=== PATIENT | male | born 1950 | race Two or more races ===

== ENCOUNTER 2021-11-04 22:13 | Inpatient (IN) | payer MEDICARE ==
[~2021-11-04] VITALS: Ht 170.2 cm; Wt 67.9 kg
[2021-11-05 00:30] LABS: BASOPHILS % (AUTO) 0.4 % (0.0-2.0); EOSINOPHILS % (AUTO) 0 % (1.0-6.0); HEMOGLOBIN 9.3 g/dL (13.5-17.5); LYMPHOCYTES # (AUTO) 0.5 K/uL (1.0-4.8)
[2021-11-05 00:33] LABS: HEMATOCRIT 30.2 % (41-53); LYMPHOCYTES % (AUTO) 1.2 % (22.0-44.0); MEAN CORPUSCULAR HEMOGLOBIN 23.6 pg (26.0-34.0); MEAN CORPUSCULAR HGB CONC 30.9 G/dL (31.0-37.0); MEAN CORPUSCULAR VOLUME 76 fL (80-100); MONOCYTES # (AUTO) 1.2 K/uL (0.1-1.0); MONOCYTES % (AUTO) 3.3 % (2.0-9.0); PLATELET COUNT (AUTO) 418 K/uL (150-450); RED BLOOD CELL COUNT(AUTO) 3.95 MIL/uL (4.50-5.90); RED CELL DISTRIBUTION WIDTH 15.7 % (11.5-14.5)
[2021-11-05 00:36] LABS: NEUTROPHILS % (AUTO) 95.1 % (40.0-70.0)
[2021-11-05 00:39] LABS: ANION GAP 15 mmol/L (8-16); CALCIUM, TOTAL 8.5 mg/dL (8.8-10.5); CARBON DIOXIDE 19 mmol/L (22-29); CHLORIDE 107 mmol/L (98-107); CREATININE 2.84 mg/dL (0.60-1.30); GLOMERULAR FILTR. RATE CALC 22 mL/min (>60); GLUCOSE,RANDOM 239 mg/dL (70-110); SODIUM SERUM 141 mmol/L (136-145); UREA NITROGEN, BLOOD 20 mg/dL (7-18)
[2021-11-05] MEDS ORDERED: CefTRIAXone SODIUM 2 GM in DEXTROSE 5%-WATER 50 ML IV ONE (00:45)
[2021-11-05] MEDS ORDERED: VANCOMYCIN HCL 1 GM/D5% WATER 200 ML IV ONE (00:45)
[2021-11-05] MEDS ORDERED: SODIUM CHLORIDE 0.9% 2,050 ML IV ONE (00:45)
[2021-11-05 00:47] LABS: TROPONIN I 0.22 ng/mL (0.00-0.05)
[2021-11-05 00:54] LABS: ALBUMIN 2.2 g/dL (3.4-5.0); ALKALINE PHOSPHATASE 81 U/L (46-116); ASPARTATE AMINOTRANSFERASE 63 U/L (15-37); BILIRUBIN,TOTAL 0.6 mg/dL (0.1-1.0); THYROID STIMULATING HORMONE 1.17 uIU/mL (0.36-3.74); TOTAL PROTEIN, SERUM 6.1 g/dL (6.4-8.2)
[2021-11-05 00:58] LABS: LACTIC ACID 9.1 mmol/L (0.4-2.0)
[2021-11-05 01:16] LABS: ALANINE AMINOTRANSFERASE 52 U/L (12-78)
[2021-11-05 03:16] LABS: APPEARANCE,URINE TURBID (CLEAR); GLUCOSE, URINE (UA) NEGATIVE (NEGATIVE); KETONES,URINE 40 mg/dL (NEGATIVE); LEUKOCYTE ESTERASE ,URINE MODERATE (NEGATIVE); NITRATE,URINE POSITIVE (NEGATIVE); OCCULT BLOOD,URINE LARGE (NEGATIVE); PH,URINE 6.5 (5.0-8.0); PROTEIN,URINE SEE CONFIRM (NEGATIVE)
[2021-11-05 03:18] LABS: BILIRUBIN,URINE PRELIM. POSITIVE (NEGATIVE)
[2021-11-05 03:20] LABS: AMPHET/METH SCREEN,URINE NEGATIVE (NEGATIVE); BARBITURATE SCREEN, URINE NEGATIVE (NEGATIVE); BENZODIAZEPINES SCREEN,URINE NEGATIVE (NEGATIVE); CANNABINOID SCREEN,URINE NEGATIVE (NEGATIVE); COCAINE SCREEN,URINE NEGATIVE (NEGATIVE); METHADONE SCREEN, URINE NEGATIVE (NEGATIVE); OPIATE SCREEN,URINE NEGATIVE (NEGATIVE)
[2021-11-05 03:23] LABS: PHENCYCLIDINE SCREEN,URINE NEGATIVE (NEGATIVE)
[2021-11-05 03:24] LABS: BACTERIA,URINE Moderate /HPF (None Seen); RBC,URINE Full Field /HPF (0-2); SQUAMOUS EPITHELIAL CELL,UR Rare /LPF (None Seen); SULFOSALICYLIC ACID,URINE 4+ (Negative); WBC,URINE 26-50 /HPF (0-5)
[2021-11-05] MEDS ORDERED: ONDANSETRON HCL 4 MG/2 ML VIAL IVP PRN ×2 (07:30→14:30)
[2021-11-05] MEDS ORDERED: ACETAMINOPHEN 325 MG TABLET PO PRN (07:30)
[2021-11-05] MEDS ORDERED: 0.9% SODIUM CHLORIDE 10 ML SYRINGE IVP PRN (07:30)
[2021-11-05 09:51] LABS: COVID AG,FIA SOURCE NASOPHARYNGEAL
[2021-11-05] MEDS ORDERED: MORPHINE SULFATE 2 MG/ML SYRINGE IVP PRN (14:30)
[2021-11-05] MEDS ORDERED: BISACODYL 10 MG RECTAL RECTAL SUPPOSITORY PR PRN (14:30)
[2021-11-05] MEDS ORDERED: MAGNESIUM HYDROXIDE SUSPENSION 30 ML UDCUP PO PRN (14:30)
[2021-11-05] MEDS ORDERED: HYDROCODONE/ACETAMINOPHEN 5-325 MG TABLET PO PRN (14:30)
[2021-11-05 15:34] LABS: ABG BASE EXCESS -5.1 mmol/L (-2.0-3.0); ABG CARBOXYHEMOGLOBIN 0.5 % (0.0-1.5); ABG METHEMOGLOBIN 0.2 % (0.0-1.5); ABG OXYGEN CONTENT 11.1 mL/dL (15.0-23.0); ABG OXYGEN SATURATION 92.7 % (95.0-98.0); ABG OXYHEMOGLOBIN 92.1 % (94.0-100.0); ABG PCO2 23 mmHg (35-45); ABG PH 7.504 (7.35-7.450); ABG TOTAL HEMOGLOBIN 8.5 G/dL (12.0-18.0); PO2, ARTERIAL BG 67.6 mmHg (75.0-83.0); SITE, BLOOD GAS LFT RADIAL; SOURCE, BLOOD GAS ARTERIAL; TEMPERATURE, FAHRENHEIT, BG 99.3 FAHREN (96.0-98.6)
[2021-11-05 15:35] LABS: ABG A-A DIFF O2 53.9 mmHg (10-20.0); O2 DEVICE,BLOOD GAS ROOM AIR (ROOM AIR)
[2021-11-05 15:56] LABS: INR 1.3 (0.9-1.1); PROTHROMBIN TIME 13.5 SEC (9.4-11.6)
[2021-11-05] MEDS: MethylPREDNISolone SOD SUCC 125 MG/2 ML VIAL IVP SCH (18:03)
[2021-11-05 19:55] LABS: CALCIUM, TOTAL 8.3 mg/dL (8.8-10.5); CREATININE 2.19 mg/dL (0.60-1.30); POTASSIUM 3.8 mmol/L (3.5-5.1)
[2021-11-05] MEDS: DOCUSATE SODIUM 100 MG CAPSULE PO SCH (20:32)
[2021-11-05] MEDS: CefTRIAXone 1 GM/DEXTROSE 50 ML IV SCH (21:26)
[2021-11-05 22:09] VITALS: BP 148/78
[2021-11-05 23:41] VITALS: BP 117/70
[2021-11-06] MEDS: MethylPREDNISolone SOD SUCC 125 MG/2 ML VIAL IVP SCH ×5 (00:10→23:42)
[2021-11-06] MEDS ORDERED: INFLUENZA VIRUS VACCINE QVS 2021-22 (6MO+)/PF 60 MCG/0.5 ML SYRINGE IM. ONE (02:15)
[2021-11-06] MEDS ORDERED: PNEUMOCOCCAL VACCINE POLYVALENT 0.5 ML VIAL [PPSV23] IM. ONE (02:15)
[2021-11-06 03:49] VITALS: BP 110/67
[2021-11-06 07:55] VITALS: BP 155/98
[2021-11-06 08:15] LABS: BASOPHILS % (AUTO) 0.1 % (0.0-2.0); EOSINOPHILS % (AUTO) 0 % (1.0-6.0); HEMATOCRIT 22.6 % (41-53); HEMOGLOBIN 7.4 g/dL (13.5-17.5); LYMPHOCYTES # (AUTO) 0.6 K/uL (1.0-4.8); LYMPHOCYTES % (AUTO) 2.3 % (22.0-44.0); MEAN CORPUSCULAR HEMOGLOBIN 24.2 pg (26.0-34.0); MEAN CORPUSCULAR HGB CONC 32.9 G/dL (31.0-37.0); MEAN CORPUSCULAR VOLUME 74 fL (80-100); MONOCYTES # (AUTO) 0.9 K/uL (0.1-1.0); MONOCYTES % (AUTO) 3.3 % (2.0-9.0); NEUTROPHILS # (AUTO) 25.2 K/uL (1.8-7.7); PLATELET COUNT (AUTO) 350 K/uL (150-450); RED BLOOD CELL COUNT(AUTO) 3.08 MIL/uL (4.50-5.90); RED CELL DISTRIBUTION WIDTH 15.3 % (11.5-14.5)
[2021-11-06 08:22] LABS: NEUTROPHILS % (AUTO) 94.3 % (40.0-70.0)
[2021-11-06 08:32] LABS: CREATININE 1.77 mg/dL (0.60-1.30); POTASSIUM 4.2 mmol/L (3.5-5.1)
[2021-11-06 08:33] LABS: BILIRUBIN,TOTAL 0.4 mg/dL (0.1-1.0); CALCIUM, TOTAL 8.7 mg/dL (8.8-10.5)
[2021-11-06] MEDS: PANTOPRAZOLE SODIUM 40 MG/VIAL IVP SCH (09:06)
[2021-11-06] MEDS: DOCUSATE SODIUM 100 MG CAPSULE PO SCH ×2 (09:06→21:00)
[2021-11-06] MEDS: SODIUM CHLORIDE 0.9% 1,000 ML IV SCH ×2 (09:07→23:43)
[2021-11-06 11:07] VITALS: BP 149/89
[2021-11-06 15:54] VITALS: BP 148/84
[2021-11-06 20:24] VITALS: BP 119/74
[2021-11-06] MEDS: CefTRIAXone 1 GM/DEXTROSE 50 ML IV SCH (21:27)
[2021-11-07] VITALS (12 sets, daily range): BP systolic 111–132; BP diastolic 57–99
[2021-11-07] MEDS: MethylPREDNISolone SOD SUCC 125 MG/2 ML VIAL IVP SCH ×2 (05:36→13:18)
[2021-11-07 06:56] LABS: MEAN CORPUSCULAR HEMOGLOBIN 24.1 pg (26.0-34.0); MEAN CORPUSCULAR HGB CONC 32.8 G/dL (31.0-37.0); MEAN CORPUSCULAR VOLUME 74 fL (80-100); PLATELET COUNT (AUTO) 323 K/uL (150-450); RED BLOOD CELL COUNT(AUTO) 2.71 MIL/uL (4.50-5.90); RED CELL DISTRIBUTION WIDTH 15.2 % (11.5-14.5)
[2021-11-07 07:12] LABS: MAGNESIUM 2.5 mg/dL (1.80-2.40); PHOSPHORUS 3.3 mg/dL (2.5-4.9)
[2021-11-07 07:16] LABS: % IRON SATURATION 5.3 % (30-44)
[2021-11-07 07:26] LABS: CALCIUM, TOTAL 8.6 mg/dL (8.8-10.5); CREATININE 1.37 mg/dL (0.60-1.30); POTASSIUM 4.1 mmol/L (3.5-5.1)
[2021-11-07] MEDS: PANTOPRAZOLE SODIUM 40 MG/VIAL IVP SCH (07:54)
[2021-11-07] MEDS: DOCUSATE SODIUM 100 MG CAPSULE PO SCH ×2 (07:54→21:10)
[2021-11-07 07:55] LABS: HEMOGLOBIN 6.5 g/dL (13.5-17.5)
[2021-11-07 07:56] LABS: HEMATOCRIT 19.9 % (41-53)
[2021-11-07 09:19] LABS: BAND NEUTROPHILS % (MANUAL) 2 % (0-5); LYMPHOCYTES % (MANUAL) 3 % (22-44); MONOCYTES % (MANUAL) 4 % (2-9); SEGMENTED NEUTROPHILS % 91 % (40-70)
[2021-11-07] MEDS: SODIUM CHLORIDE 0.9% 1,000 ML IV SCH (13:24)
[2021-11-07] MEDS: ALBUTEROL SULFATE 2.5 MG/0.5 ML NEB SOLUTION NEB PRN ×2 (13:59→19:40)
[2021-11-07] MEDS: IPRATROPIUM BROMIDE 0.5 MG/2.5 ML NEB SOLUTION NEB PRN ×2 (13:59→19:40)
[2021-11-07] MEDS ORDERED: MethylPREDNISolone SOD SUCC 40 MG/ML VIAL IVP SCH (21:00)
[2021-11-07] MEDS: CefTRIAXone 1 GM/DEXTROSE 50 ML IV SCH (21:10)
[2021-11-07] MEDS ORDERED: SODIUM CHLORIDE 0.9% 250 ML IV ONE (22:15)
[2021-11-08] VITALS (8 sets, daily range): BP systolic 117–158; BP diastolic 67–97
[2021-11-08 08:14] LABS: BASOPHILS % (AUTO) 0.1 % (0.0-2.0); EOSINOPHILS % (AUTO) 0 % (1.0-6.0); HEMATOCRIT 26.2 % (41-53); HEMOGLOBIN 8.5 g/dL (13.5-17.5); LYMPHOCYTES # (AUTO) 0.6 K/uL (1.0-4.8); LYMPHOCYTES % (AUTO) 3.2 % (22.0-44.0); MEAN CORPUSCULAR HEMOGLOBIN 24.6 pg (26.0-34.0); MEAN CORPUSCULAR HGB CONC 32.5 G/dL (31.0-37.0); MEAN CORPUSCULAR VOLUME 76 fL (80-100); MONOCYTES # (AUTO) 0.7 K/uL (0.1-1.0); MONOCYTES % (AUTO) 4.2 % (2.0-9.0); NEUTROPHILS # (AUTO) 16.4 K/uL (1.8-7.7); PLATELET COUNT (AUTO) 343 K/uL (150-450); RED BLOOD CELL COUNT(AUTO) 3.46 MIL/uL (4.50-5.90); RED CELL DISTRIBUTION WIDTH 16.6 % (11.5-14.5)
[2021-11-08 08:20] LABS: NEUTROPHILS % (AUTO) 92.5 % (40.0-70.0)
[2021-11-08] MEDS: SODIUM CHLORIDE 0.9% 1,000 ML IV SCH (08:28)
[2021-11-08] MEDS: DOCUSATE SODIUM 100 MG CAPSULE PO SCH ×2 (08:59→21:39)
[2021-11-08] MEDS: PredniSONE 20 MG TABLET PO SCH (08:59)
[2021-11-08] MEDS: PANTOPRAZOLE SODIUM 40 MG/VIAL IVP SCH (08:59)
[2021-11-08] MEDS: CefTRIAXone 1 GM/DEXTROSE 50 ML IV SCH (21:39)
[2021-11-09 00:09] VITALS: BP 132/84
[2021-11-09] MEDS: SODIUM CHLORIDE 0.9% 1,000 ML IV SCH ×2 (01:55→16:47)
[2021-11-09 04:11] VITALS: BP 156/92
[2021-11-09 07:33] VITALS: BP 134/88
[2021-11-09] MEDS: DOCUSATE SODIUM 100 MG CAPSULE PO SCH ×2 (08:00→21:00)
[2021-11-09 08:15] LABS: BASOPHILS % (AUTO) 0.1 % (0.0-2.0); EOSINOPHILS % (AUTO) 0 % (1.0-6.0); HEMATOCRIT 25.2 % (41-53); HEMOGLOBIN 8.1 g/dL (13.5-17.5); LYMPHOCYTES # (AUTO) 1.1 K/uL (1.0-4.8); LYMPHOCYTES % (AUTO) 7.6 % (22.0-44.0); MEAN CORPUSCULAR HEMOGLOBIN 24.4 pg (26.0-34.0); MEAN CORPUSCULAR HGB CONC 32.2 G/dL (31.0-37.0); MEAN CORPUSCULAR VOLUME 76 fL (80-100); MONOCYTES # (AUTO) 1.2 K/uL (0.1-1.0); NEUTROPHILS # (AUTO) 12.6 K/uL (1.8-7.7); NEUTROPHILS % (AUTO) 84.3 % (40.0-70.0); PLATELET COUNT (AUTO) 339 K/uL (150-450); RED BLOOD CELL COUNT(AUTO) 3.33 MIL/uL (4.50-5.90)
[2021-11-09] MEDS: PANTOPRAZOLE SODIUM 40 MG/VIAL IVP SCH (08:21)
[2021-11-09] MEDS: PredniSONE 20 MG TABLET PO SCH (08:21)
[2021-11-09 11:29] LABS: CALCIUM, TOTAL 8.4 mg/dL (8.8-10.5); CREATININE 1.21 mg/dL (0.60-1.30); POTASSIUM 4.1 mmol/L (3.5-5.1)
[2021-11-09 11:38] VITALS: BP 135/85
[2021-11-09 15:19] VITALS: BP 144/86
[2021-11-09 19:44] VITALS: BP 156/89
[2021-11-09] MEDS: CefTRIAXone 1 GM/DEXTROSE 50 ML IV SCH (21:14)
[2021-11-10 00:08] VITALS: BP 143/84
[2021-11-10 04:43] VITALS: BP 155/85
[2021-11-10] MEDS: SODIUM CHLORIDE 0.9% 1,000 ML IV SCH (06:19)
[2021-11-10] MEDS: DOCUSATE SODIUM 100 MG CAPSULE PO SCH ×2 (09:00→21:11)
[2021-11-10] MEDS: PANTOPRAZOLE SODIUM 40 MG/VIAL IVP SCH (09:00)
[2021-11-10 09:12] LABS: BASOPHILS % (AUTO) 0.1 % (0.0-2.0); EOSINOPHILS % (AUTO) 0.6 % (1.0-6.0); HEMATOCRIT 32.4 % (41-53); HEMOGLOBIN 10.5 g/dL (13.5-17.5); LYMPHOCYTES # (AUTO) 1.6 K/uL (1.0-4.8); LYMPHOCYTES % (AUTO) 12.2 % (22.0-44.0); MEAN CORPUSCULAR HEMOGLOBIN 24.5 pg (26.0-34.0); MEAN CORPUSCULAR HGB CONC 32.4 G/dL (31.0-37.0); MEAN CORPUSCULAR VOLUME 76 fL (80-100); MONOCYTES # (AUTO) 1.1 K/uL (0.1-1.0); MONOCYTES % (AUTO) 8.3 % (2.0-9.0); NEUTROPHILS # (AUTO) 10.3 K/uL (1.8-7.7); NEUTROPHILS % (AUTO) 78.8 % (40.0-70.0); PLATELET COUNT (AUTO) 433 K/uL (150-450); RED BLOOD CELL COUNT(AUTO) 4.28 MIL/uL (4.50-5.90); RED CELL DISTRIBUTION WIDTH 16.5 % (11.5-14.5)
[2021-11-10 09:21] LABS: CALCIUM, TOTAL 8.7 mg/dL (8.8-10.5); CREATININE 1.29 mg/dL (0.60-1.30); POTASSIUM 3.6 mmol/L (3.5-5.1)
[2021-11-10 09:52] VITALS: BP 148/87
[2021-11-10 10:18] VITALS: BP 134/77
[2021-11-10 16:20] VITALS: BP 127/67
[2021-11-10 20:51] VITALS: BP 135/83
[2021-11-10] MEDS: CefTRIAXone 1 GM/DEXTROSE 50 ML IV SCH (21:18)
[2021-11-11 00:19] VITALS: BP 151/84
[2021-11-11] MEDS: SODIUM CHLORIDE 0.9% 1,000 ML IV SCH ×2 (00:33→18:05)
[2021-11-11 04:15] VITALS: BP 158/98
[2021-11-11 08:07] VITALS: BP 146/89
[2021-11-11] MEDS: AmLODIPine BESYLATE 5 MG TABLET PO SCH (09:12)
[2021-11-11] MEDS: DOCUSATE SODIUM 100 MG CAPSULE PO SCH ×3 (09:12→21:43)
[2021-11-11] MEDS: PANTOPRAZOLE SODIUM 40 MG/VIAL IVP SCH (09:12)
[2021-11-11 10:46] LABS: BASOPHILS % (AUTO) 0.1 % (0.0-2.0); HEMATOCRIT 32.3 % (41-53); HEMOGLOBIN 10.2 g/dL (13.5-17.5); LYMPHOCYTES # (AUTO) 1.6 K/uL (1.0-4.8); LYMPHOCYTES % (AUTO) 13.1 % (22.0-44.0); MEAN CORPUSCULAR HEMOGLOBIN 24.3 pg (26.0-34.0); MEAN CORPUSCULAR HGB CONC 31.6 G/dL (31.0-37.0); MEAN CORPUSCULAR VOLUME 77 fL (80-100); MONOCYTES # (AUTO) 0.9 K/uL (0.1-1.0); MONOCYTES % (AUTO) 7.5 % (2.0-9.0); NEUTROPHILS # (AUTO) 9.3 K/uL (1.8-7.7); NEUTROPHILS % (AUTO) 78.3 % (40.0-70.0); PLATELET COUNT (AUTO) 423 K/uL (150-450); RED CELL DISTRIBUTION WIDTH 16.9 % (11.5-14.5)
[2021-11-11 10:58] LABS: ALBUMIN 2.1 g/dL (3.4-5.0); BILIRUBIN,TOTAL 0.3 mg/dL (0.1-1.0); CALCIUM, TOTAL 8.4 mg/dL (8.8-10.5); CREATININE 1.3 mg/dL (0.60-1.30); POTASSIUM 3.6 mmol/L (3.5-5.1); TOTAL PROTEIN, SERUM 5.6 g/dL (6.4-8.2)
[2021-11-11 11:22] VITALS: BP 133/78
[2021-11-11 16:11] VITALS: BP 125/75
[2021-11-11 20:16] VITALS: BP 125/77
[2021-11-11] MEDS: CefTRIAXone 1 GM/DEXTROSE 50 ML IV SCH (22:02)
[2021-11-12 04:48] VITALS: BP 147/84
[2021-11-12 07:00] LABS: ANION GAP 5 mmol/L (8-16); CALCIUM, TOTAL 7.7 mg/dL (8.8-10.5); CARBON DIOXIDE 28 mmol/L (22-29); CHLORIDE 110 mmol/L (98-107); CREATININE 1.14 mg/dL (0.60-1.30); GLUCOSE,RANDOM 91 mg/dL (70-110); POTASSIUM 4.1 mmol/L (3.5-5.1); SODIUM SERUM 143 mmol/L (136-145); UREA NITROGEN, BLOOD 16 mg/dL (7-18)
[2021-11-12 07:02] LABS: GLOMERULAR FILTR. RATE CALC > 60 mL/min (>60)
[2021-11-12 07:41] VITALS: BP 126/72
[2021-11-12] MEDS: DOCUSATE SODIUM 100 MG CAPSULE PO SCH ×2 (08:05→20:19)
[2021-11-12] MEDS: PANTOPRAZOLE SODIUM 40 MG/VIAL IVP SCH (08:05)
[2021-11-12] MEDS: AmLODIPine BESYLATE 5 MG TABLET PO SCH (08:05)
[2021-11-12] MEDS: SODIUM CHLORIDE 0.9% 1,000 ML IV SCH (08:08)
[2021-11-12 09:50] LABS: BASOPHILS % (AUTO) 0.4 % (0.0-2.0); EOSINOPHILS % (AUTO) 1.6 % (1.0-6.0); HEMATOCRIT 32.5 % (41-53); HEMOGLOBIN 10.4 g/dL (13.5-17.5); LYMPHOCYTES # (AUTO) 1.1 K/uL (1.0-4.8); LYMPHOCYTES % (AUTO) 8.1 % (22.0-44.0); MEAN CORPUSCULAR HEMOGLOBIN 24.4 pg (26.0-34.0); MEAN CORPUSCULAR HGB CONC 31.8 G/dL (31.0-37.0); MEAN CORPUSCULAR VOLUME 77 fL (80-100); MONOCYTES # (AUTO) 0.9 K/uL (0.1-1.0); MONOCYTES % (AUTO) 6.7 % (2.0-9.0); NEUTROPHILS # (AUTO) 11.6 K/uL (1.8-7.7); NEUTROPHILS % (AUTO) 83.2 % (40.0-70.0); PLATELET COUNT (AUTO) 461 K/uL (150-450); RED BLOOD CELL COUNT(AUTO) 4.25 MIL/uL (4.50-5.90); RED CELL DISTRIBUTION WIDTH 17.1 % (11.5-14.5)
[2021-11-12 16:58] VITALS: BP 133/87
[2021-11-12 20:04] VITALS: BP 120/77
[2021-11-12] MEDS: CefTRIAXone 1 GM/DEXTROSE 50 ML IV SCH (21:27)
[2021-11-13] MEDS: SODIUM CHLORIDE 0.9% 1,000 ML IV SCH ×2 (02:02→20:08)
[2021-11-13 04:16] VITALS: BP 118/89
[2021-11-13 07:45] VITALS: BP 132/71
[2021-11-13] MEDS: PANTOPRAZOLE SODIUM 40 MG/VIAL IVP SCH (08:25)
[2021-11-13] MEDS: AmLODIPine BESYLATE 5 MG TABLET PO SCH (08:26)
[2021-11-13] MEDS: DOCUSATE SODIUM 100 MG CAPSULE PO SCH ×2 (08:26→20:08)
[2021-11-13] MEDS ORDERED: SODIUM CHLORIDE 0.9% 500 ML IV ONE (10:45)
[2021-11-13 13:11] LABS: BASOPHILS % (AUTO) 1.1 % (0.0-2.0); EOSINOPHILS % (AUTO) 0.8 % (1.0-6.0); HEMATOCRIT 32.1 % (41-53); HEMOGLOBIN 10.2 g/dL (13.5-17.5); LYMPHOCYTES % (AUTO) 8.8 % (22.0-44.0); MEAN CORPUSCULAR HEMOGLOBIN 24.5 pg (26.0-34.0); MEAN CORPUSCULAR HGB CONC 31.9 G/dL (31.0-37.0); MEAN CORPUSCULAR VOLUME 77 fL (80-100); MONOCYTES # (AUTO) 1.2 K/uL (0.1-1.0); MONOCYTES % (AUTO) 10.6 % (2.0-9.0); NEUTROPHILS # (AUTO) 8.6 K/uL (1.8-7.7); NEUTROPHILS % (AUTO) 78.7 % (40.0-70.0); PLATELET COUNT (AUTO) 453 K/uL (150-450); RED BLOOD CELL COUNT(AUTO) 4.17 MIL/uL (4.50-5.90); RED CELL DISTRIBUTION WIDTH 17.2 % (11.5-14.5)
[2021-11-13 13:17] LABS: CALCIUM, TOTAL 8.3 mg/dL (8.8-10.5); CREATININE 1.31 mg/dL (0.60-1.30); POTASSIUM 4.2 mmol/L (3.5-5.1)
[2021-11-13 13:23] LABS: ALBUMIN 2.3 g/dL (3.4-5.0); BILIRUBIN,TOTAL 0.3 mg/dL (0.1-1.0)
[2021-11-13 16:28] VITALS: BP 144/72
[2021-11-13 19:37] VITALS: BP 130/67
[2021-11-13] MEDS: CefTRIAXone 1 GM/DEXTROSE 50 ML IV SCH (21:06)
[2021-11-14 04:07] VITALS: BP 144/62
[2021-11-14 08:12] VITALS: BP 138/75
[2021-11-14] MEDS: DOCUSATE SODIUM 100 MG CAPSULE PO SCH ×3 (08:35→21:00)
[2021-11-14] MEDS: PANTOPRAZOLE SODIUM 40 MG/VIAL IVP SCH (08:35)
[2021-11-14] MEDS: AmLODIPine BESYLATE 5 MG TABLET PO SCH (08:35)
[2021-11-14 11:46] VITALS: BP 118/66
[2021-11-14 14:03] LABS: CALCIUM, TOTAL 7.3 mg/dL (8.8-10.5); CREATININE 1.2 mg/dL (0.60-1.30); POTASSIUM 3.7 mmol/L (3.5-5.1)
[2021-11-14 14:36] LABS: PHOSPHORUS 3.2 mg/dL (2.5-4.9)
[2021-11-14 15:46] VITALS: BP 122/73
[2021-11-14 17:27] LABS: COVID AG,FIA SOURCE NASAL SWAB
[2021-11-14] MEDS: SODIUM CHLORIDE 0.9% 1,000 ML IV SCH (18:25)
[2021-11-14 19:40] VITALS: BP 150/87
[2021-11-14] MEDS: CefTRIAXone 1 GM/DEXTROSE 50 ML IV SCH (21:28)
[2021-11-14] MEDS: ZOLPIDEM TARTRATE 5 MG TABLET PO PRN (21:30)
[2021-11-15] MEDS: SODIUM CHLORIDE 0.9% 1,000 ML IV SCH ×2 (00:45→15:52)
[2021-11-15 04:00] VITALS: BP 115/78
[2021-11-15 08:14] VITALS: BP 119/72
[2021-11-15] MEDS: PANTOPRAZOLE SODIUM 40 MG/VIAL IVP SCH (08:40)
[2021-11-15] MEDS: AmLODIPine BESYLATE 5 MG TABLET PO SCH (08:41)
[2021-11-15] MEDS: DOCUSATE SODIUM 100 MG CAPSULE PO SCH ×2 (08:41→21:23)
[2021-11-15 12:33] LABS: HEMATOCRIT 30.8 % (41-53); HEMOGLOBIN 10.1 g/dL (13.5-17.5)
[2021-11-15 16:02] VITALS: BP 133/76
[2021-11-15 19:52] VITALS: BP 137/75
[2021-11-15] MEDS: CefTRIAXone 1 GM/DEXTROSE 50 ML IV SCH (21:23)
[2021-11-15] MEDS: ZOLPIDEM TARTRATE 5 MG TABLET PO PRN (21:32)
[2021-11-16 04:28] VITALS: BP 128/76
[2021-11-16 08:16] VITALS: BP 132/81
[2021-11-16] MEDS: SODIUM CHLORIDE 0.9% 1,000 ML IV SCH ×2 (09:16→21:25)
[2021-11-16] MEDS: DOCUSATE SODIUM 100 MG CAPSULE PO SCH ×2 (09:17→19:49)
[2021-11-16] MEDS: PANTOPRAZOLE SODIUM 40 MG/VIAL IVP SCH (09:17)
[2021-11-16] MEDS: AmLODIPine BESYLATE 5 MG TABLET PO SCH (09:18)
[2021-11-16 19:35] VITALS: BP 140/79
[2021-11-16] MEDS: CefTRIAXone 1 GM/DEXTROSE 50 ML IV SCH (21:24)
[2021-11-17 03:11] VITALS: BP 142/82
[2021-11-17 08:00] VITALS: BP 136/82
[2021-11-17] MEDS: DOCUSATE SODIUM 100 MG CAPSULE PO SCH ×2 (09:00→21:00)
[2021-11-17] MEDS: AmLODIPine BESYLATE 5 MG TABLET PO SCH (09:19)
[2021-11-17] MEDS: PANTOPRAZOLE SODIUM 40 MG/VIAL IVP SCH (09:20)
[2021-11-17 11:09] VITALS: BP 129/77
[2021-11-17 11:36] LABS: BASOPHILS % (AUTO) 0.5 % (0.0-2.0); EOSINOPHILS % (AUTO) 0.3 % (1.0-6.0); HEMATOCRIT 33.2 % (41-53); HEMOGLOBIN 10.6 g/dL (13.5-17.5); LYMPHOCYTES # (AUTO) 0.8 K/uL (1.0-4.8); LYMPHOCYTES % (AUTO) 11.1 % (22.0-44.0); MEAN CORPUSCULAR HEMOGLOBIN 24.3 pg (26.0-34.0); MEAN CORPUSCULAR HGB CONC 31.8 G/dL (31.0-37.0); MEAN CORPUSCULAR VOLUME 77 fL (80-100); MONOCYTES # (AUTO) 0.7 K/uL (0.1-1.0); MONOCYTES % (AUTO) 10.1 % (2.0-9.0); NEUTROPHILS # (AUTO) 5.3 K/uL (1.8-7.7); PLATELET COUNT (AUTO) 455 K/uL (150-450); RED BLOOD CELL COUNT(AUTO) 4.34 MIL/uL (4.50-5.90); RED CELL DISTRIBUTION WIDTH 17.8 % (11.5-14.5)
[2021-11-17] MEDS: SODIUM CHLORIDE 0.9% 1,000 ML IV SCH (12:13)
[2021-11-17 14:55] VITALS: BP 131/81
[2021-11-17] MEDS: ACETAMINOPHEN 325 MG TABLET PO PRN (18:18)
[2021-11-17 19:28] VITALS: BP 120/81
[2021-11-17] MEDS: CefTRIAXone 1 GM/DEXTROSE 50 ML IV SCH (21:27)
[2021-11-17 23:56] VITALS: BP 116/68
[2021-11-18 06:18] VITALS: BP 118/78
[2021-11-18 07:32] VITALS: BP 116/74
[2021-11-18] MEDS: AmLODIPine BESYLATE 5 MG TABLET PO SCH (08:54)
[2021-11-18] MEDS: PANTOPRAZOLE SODIUM 40 MG/VIAL IVP SCH (08:54)
[2021-11-18] MEDS: DOCUSATE SODIUM 100 MG CAPSULE PO SCH ×3 (08:54→21:00)
[2021-11-18 10:27] LABS: BASOPHILS % (AUTO) 0.6 % (0.0-2.0); EOSINOPHILS % (AUTO) 0 % (1.0-6.0); HEMATOCRIT 31.4 % (41-53); HEMOGLOBIN 10.1 g/dL (13.5-17.5); LYMPHOCYTES # (AUTO) 0.4 K/uL (1.0-4.8); LYMPHOCYTES % (AUTO) 6.4 % (22.0-44.0); MEAN CORPUSCULAR HEMOGLOBIN 24.4 pg (26.0-34.0); MEAN CORPUSCULAR HGB CONC 32.2 G/dL (31.0-37.0); MEAN CORPUSCULAR VOLUME 76 fL (80-100); MONOCYTES # (AUTO) 0.7 K/uL (0.1-1.0); MONOCYTES % (AUTO) 9.6 % (2.0-9.0); NEUTROPHILS # (AUTO) 5.7 K/uL (1.8-7.7); NEUTROPHILS % (AUTO) 83.4 % (40.0-70.0); PLATELET COUNT (AUTO) 423 K/uL (150-450); RED BLOOD CELL COUNT(AUTO) 4.15 MIL/uL (4.50-5.90); RED CELL DISTRIBUTION WIDTH 17.6 % (11.5-14.5)
[2021-11-18 10:46] LABS: CALCIUM, TOTAL 8.1 mg/dL (8.8-10.5); CREATININE 1.27 mg/dL (0.60-1.30)
[2021-11-18 10:48] LABS: PHOSPHORUS 2.8 mg/dL (2.5-4.9)
[2021-11-18 15:05] VITALS: BP 122/82
[2021-11-18 19:38] VITALS: BP 146/67
[2021-11-18] MEDS: CefTRIAXone 1 GM/DEXTROSE 50 ML IV SCH (22:50)
[2021-11-18 23:54] VITALS: BP 135/72
[2021-11-19 04:01] VITALS: BP 116/74
[2021-11-19 08:19] VITALS: BP 126/69
[2021-11-19] MEDS: MULTIVITAMINS WITH MINERALS, THERAPEUTIC TABLET PO SCH (09:26)
[2021-11-19] MEDS: DOCUSATE SODIUM 100 MG CAPSULE PO SCH ×2 (09:27→21:00)
[2021-11-19] MEDS: AmLODIPine BESYLATE 5 MG TABLET PO SCH (09:27)
[2021-11-19] MEDS: PANTOPRAZOLE SODIUM 40 MG/VIAL IVP SCH (09:27)
[2021-11-19 16:02] VITALS: BP 125/84
[2021-11-19 20:04] VITALS: BP 147/97
[2021-11-19] MEDS: CefTRIAXone 1 GM/DEXTROSE 50 ML IV SCH (21:02)
[2021-11-20 01:08] VITALS: BP 107/66
[2021-11-20 04:40] VITALS: BP 113/65
[2021-11-20 07:41] VITALS: BP 127/62
[2021-11-20] MEDS: MULTIVITAMINS WITH MINERALS, THERAPEUTIC TABLET PO SCH (08:37)
[2021-11-20] MEDS: AmLODIPine BESYLATE 5 MG TABLET PO SCH (08:37)
[2021-11-20] MEDS: DOCUSATE SODIUM 100 MG CAPSULE PO SCH ×2 (08:38→20:23)
[2021-11-20] MEDS: PANTOPRAZOLE SODIUM 40 MG/VIAL IVP SCH (08:38)
[2021-11-20 16:26] VITALS: BP 121/59
[2021-11-20 19:45] VITALS: BP 111/78
[2021-11-20] MEDS: CefTRIAXone 1 GM/DEXTROSE 50 ML IV SCH (20:34)
[2021-11-21] MEDS: ACETAMINOPHEN 325 MG TABLET PO PRN ×2 (04:08→20:40)
[2021-11-21 04:43] VITALS: BP 105/67
[2021-11-21 08:00] VITALS: BP 110/66
[2021-11-21] MEDS: DOCUSATE SODIUM 100 MG CAPSULE PO SCH ×2 (09:00→20:40)
[2021-11-21] MEDS: AmLODIPine BESYLATE 5 MG TABLET PO SCH (09:39)
[2021-11-21] MEDS: MULTIVITAMINS WITH MINERALS, THERAPEUTIC TABLET PO SCH (09:39)
[2021-11-21] MEDS: PANTOPRAZOLE SODIUM 40 MG/VIAL IVP SCH (09:40)
[2021-11-21 18:45] VITALS: BP 114/70
[2021-11-21 19:10] VITALS: BP 107/73
[2021-11-21] MEDS: CefTRIAXone 1 GM/DEXTROSE 50 ML IV SCH (20:37)
[2021-11-22 00:20] VITALS: BP 95/53
[2021-11-22 04:00] VITALS: BP 116/57
[2021-11-22 07:29] VITALS: BP 110/58
[2021-11-22 09:16] LABS: CALCIUM, TOTAL 8.4 mg/dL (8.8-10.5); CREATININE 1.52 mg/dL (0.60-1.30); POTASSIUM 4.4 mmol/L (3.5-5.1)
[2021-11-22] MEDS: DOCUSATE SODIUM 100 MG CAPSULE PO SCH ×3 (09:25→21:12)
[2021-11-22] MEDS: PANTOPRAZOLE SODIUM 40 MG/VIAL IVP SCH (09:25)
[2021-11-22] MEDS: MULTIVITAMINS WITH MINERALS, THERAPEUTIC TABLET PO SCH (09:25)
[2021-11-22] MEDS: AmLODIPine BESYLATE 5 MG TABLET PO SCH (09:25)
[2021-11-22 11:02] LABS: APPEARANCE,URINE TURBID (CLEAR); GLUCOSE, URINE (UA) NEGATIVE (NEGATIVE); KETONES,URINE TRACE mg/dL (NEGATIVE); LEUKOCYTE ESTERASE ,URINE SMALL (NEGATIVE); NITRATE,URINE NEGATIVE (NEGATIVE); OCCULT BLOOD,URINE LARGE (NEGATIVE); PH,URINE 5.5 (5.0-8.0); PROTEIN,URINE SEE CONFIRM (NEGATIVE); UROBILINOGEN,URINE 0.2 mg/dL (<=1.0)
[2021-11-22 11:45] LABS: BILIRUBIN,URINE PRELIM. POSITIVE (NEGATIVE)
[2021-11-22 11:49] LABS: RBC,URINE >100 /HPF (0-2); SULFOSALICYLIC ACID,URINE 3+ (Negative)
[2021-11-22 11:50] LABS: BACTERIA,URINE Many /HPF (None Seen)
[2021-11-22 15:11] VITALS: BP 108/64
[2021-11-22 19:03] VITALS: BP 104/64
[2021-11-22] MEDS: CefTRIAXone 1 GM/DEXTROSE 50 ML IV SCH (21:12)
[2021-11-22 22:22] LABS: CREATININE,URINE RANDOM 206.6 mg/dL (30.0-125.0)
[2021-11-23 00:50] VITALS: BP 101/70
[2021-11-23 05:43] VITALS: BP 111/65
[2021-11-23 06:49] LABS: BASOPHILS % (AUTO) 0.7 % (0.0-2.0); EOSINOPHILS % (AUTO) 0.2 % (1.0-6.0); HEMATOCRIT 29.3 % (41-53); HEMOGLOBIN 9.7 g/dL (13.5-17.5); LYMPHOCYTES # (AUTO) 0.7 K/uL (1.0-4.8); MEAN CORPUSCULAR HEMOGLOBIN 24.8 pg (26.0-34.0); MEAN CORPUSCULAR HGB CONC 33.1 G/dL (31.0-37.0); MEAN CORPUSCULAR VOLUME 75 fL (80-100); MONOCYTES # (AUTO) 0.6 K/uL (0.1-1.0); MONOCYTES % (AUTO) 11.5 % (2.0-9.0); NEUTROPHILS # (AUTO) 3.6 K/uL (1.8-7.7); NEUTROPHILS % (AUTO) 73.6 % (40.0-70.0); PLATELET COUNT (AUTO) 310 K/uL (150-450); RED BLOOD CELL COUNT(AUTO) 3.91 MIL/uL (4.50-5.90)
[2021-11-23 07:05] LABS: BILIRUBIN,TOTAL 0.2 mg/dL (0.1-1.0); CALCIUM, TOTAL 8.5 mg/dL (8.8-10.5); CREATININE 1.41 mg/dL (0.60-1.30); TOTAL PROTEIN, SERUM 5.9 g/dL (6.4-8.2)
[2021-11-23 08:00] VITALS: BP 113/72
[2021-11-23] MEDS: PANTOPRAZOLE SODIUM 40 MG/VIAL IVP SCH (09:32)
[2021-11-23] MEDS: DOCUSATE SODIUM 100 MG CAPSULE PO SCH (09:32)
[2021-11-23] MEDS: AmLODIPine BESYLATE 5 MG TABLET PO SCH (09:32)
[2021-11-23] MEDS: MULTIVITAMINS WITH MINERALS, THERAPEUTIC TABLET PO SCH (09:32)
[2021-11-23 13:29] VITALS: BP 114/78
[2021-11-23 14:44] LABS: COVID AG,FIA SOURCE NASAL SWAB
[2021-11-23 16:36] VITALS: BP 121/77
[2021-11-23 19:36] VITALS: BP 110/58
[2021-11-24 04:42] VITALS: BP 105/65
[2021-11-24 06:40] LABS: BASOPHILS % (AUTO) 0.6 % (0.0-2.0); EOSINOPHILS % (AUTO) 0.6 % (1.0-6.0); HEMATOCRIT 28.6 % (41-53); HEMOGLOBIN 9.4 g/dL (13.5-17.5); LYMPHOCYTES # (AUTO) 0.9 K/uL (1.0-4.8); LYMPHOCYTES % (AUTO) 16.6 % (22.0-44.0); MEAN CORPUSCULAR HEMOGLOBIN 24.2 pg (26.0-34.0); MEAN CORPUSCULAR HGB CONC 32.7 G/dL (31.0-37.0); MEAN CORPUSCULAR VOLUME 74 fL (80-100); MONOCYTES # (AUTO) 0.7 K/uL (0.1-1.0); MONOCYTES % (AUTO) 12.4 % (2.0-9.0); NEUTROPHILS # (AUTO) 3.8 K/uL (1.8-7.7); NEUTROPHILS % (AUTO) 69.8 % (40.0-70.0); PLATELET COUNT (AUTO) 335 K/uL (150-450); RED BLOOD CELL COUNT(AUTO) 3.87 MIL/uL (4.50-5.90); RED CELL DISTRIBUTION WIDTH 17.8 % (11.5-14.5)
[2021-11-24 07:00] LABS: BILIRUBIN,TOTAL 0.3 mg/dL (0.1-1.0); CALCIUM, TOTAL 8.5 mg/dL (8.8-10.5); CREATININE 1.25 mg/dL (0.60-1.30); POTASSIUM 3.9 mmol/L (3.5-5.1); TOTAL PROTEIN, SERUM 6.1 g/dL (6.4-8.2)
[2021-11-24 07:49] VITALS: BP 104/60
[2021-11-24] MEDS: MULTIVITAMINS WITH MINERALS, THERAPEUTIC TABLET PO SCH (08:51)
[2021-11-24] MEDS: AmLODIPine BESYLATE 5 MG TABLET PO SCH (08:51)
[2021-11-24] MEDS ORDERED: AMLO-257 PO ×2 (11:32→11:50)
[2021-11-24] MEDS ORDERED: ACET325T51 PO (11:32)
[2021-11-24] MEDS ORDERED: MULT-1239 PO (11:32)
[2021-11-24] MEDS ORDERED: IPRNEB NEB (11:32)
[2021-11-24] MEDS ORDERED: AUD NEB ×2 (11:32→11:50)
[2021-11-24] MEDS ORDERED: MULT-248 PO (11:49)
[2021-11-24] MEDS ORDERED: ACET-2247 PO (11:49)
[2021-11-24] MEDS ORDERED: IPRNEB IH (11:51)
[2021-11-24] MEDS ORDERED: BISA10SU11 PR (11:51)
[2021-11-24] MEDS ORDERED: MOM30 PO (11:52)
== END 2021-11-24 14:19 | DRG 871 ==
LOC: EMS 22:13 → 5N 11-05 19:08 → 6S 11-05 21:30 → 5S 11-07 04:55 → 6S 11-11 18:30 → 6N 11-14 21:08
PROVIDERS: ADMIT Hospitalist; ATTEND Hospitalist
PROC: 30233N1 Transfusion of Nonautologous Red Blood Cells into Peripheral Vein, Percutaneous Approach (ICD-10-PCS; principal; 2021-11-07)
DX: A41.9 Sepsis, unspecified organism (principal); U07.1 COVID-19; J96.01 Acute respiratory failure with hypoxia; E43 Unspecified severe protein-calorie malnutrition; R65.21 Severe sepsis with septic shock; N17.9 Acute kidney failure, unspecified; E87.2 Acidosis; N13.6 Pyonephrosis; G93.40 Encephalopathy, unspecified; E27.40 Unspecified adrenocortical insufficiency; D50.9 Iron deficiency anemia, unspecified; E78.5 Hyperlipidemia, unspecified; N18.9 Chronic kidney disease, unspecified; R53.81 Other malaise; I12.9 Hypertensive chronic kidney disease with stage 1 through stage 4 chronic kidney disease, or unspecified chronic kidney disease; R55 Syncope and collapse; Z86.73 Personal history of transient ischemic attack (TIA), and cerebral infarction without residual deficits; Z68.24 Body mass index [BMI] 24.0-24.9, adult; Z91.19 Patient's noncompliance with other medical treatment and regimen; Z87.442 Personal history of urinary calculi; Z91.018 Allergy to other foods
CPT/HCPCS: 70450; 71045; 74176; 76770; 80048; 80053; 81001; 81002; 82043; 82140; 82570; 82728; 82805; 83540; 83550; 83605; 83735; 83880; 84100; 84156; 84300; 84443; 84484; 84540; 85014; 85018; 85025; 85610; 86850; 86900; 86901; 86923; 87040; 87086; 92610; 93005; 93306; 93880; 93970; 94640; 97110; 97116; 97163; 97166; 97530; 97535; 99291; C9113; G0378; G0480; J0696; J2920; J2930; J3370; J7030; J7040; J7050; J7060; P9016; 36415-L1; 36415-TC; J7613; U0003